=== PATIENT | male | born 1945 | race Caucasian/White ===

== ENCOUNTER → 2020-11-28 | Outpatient (CLI) | payer MEDICARE ==
[2020-11-28 15:32] LABS: HEMOGLOBIN 14.4 gm/dl (14.0-17.5); RED BLOOD COUNT 4.6 M/UL (4.20-5.50); WHITE BLOOD COUNT 6.9 K/UL (4.5-11.0)
[2020-11-28 16:19] LABS: BUN/CREATININE RATIO 18 (0-10)
== END ==
LOC: LAB 12:45
PROVIDERS: Anesthesiology Pain Medicine
DX: Z01.818 Encounter for other preprocedural examination (principal); J43.9 Emphysema, unspecified
CPT/HCPCS: 36415; 71046; 80048; 85027; 93005

== ENCOUNTER → 2021-03-24 | Outpatient (CLI) | payer MEDICARE ==
[~2021-03-24] MED LIST: ASPIRIN325 MG PO; ATENOLOL25 MG PO; CATAPRES 0.1MG0.1 MG PO; FLOMAX 0.4 MG0.4 MG PO; ISOSORBIDE MONO30 MG PO; LIPITOR80 MG PO; LISINOPRIL40 MG PO; MELATONIN5 M2 PO; MIRTAZAPINE15 MG PO; MOBIC15 MG PO; MUCUS RELIEF400 MG PO; NAMENDA5 MG PO; NEURONTIN300 MG PO; NORVASC10 MG PO; PERCOCET 10-321 EACH PO; PLAVIX75 MG PO; PROTONIX40 MG PO; PROVENTIL HFA6.7 GM INH; SYMPROIC PO; TRAZODONE HCL50 MG PO; TRELEGY ELLIPT1 EACH INH; XANAX0.5 MG PO; ZANAFLEX4 MG PO
[2021-03-24 10:54] LABS: HEMOGLOBIN 13.2 gm/dl (14.0-17.5); RED BLOOD COUNT 4.21 M/UL (4.20-5.50); WHITE BLOOD COUNT 8.2 K/UL (4.5-11.0)
[2021-03-24 11:39] LABS: BUN/CREATININE RATIO 15 (0-10)
== END ==
LOC: OPSV2 09:37
PROVIDERS: Anesthesiology Pain Medicine
DX: Z01.818 Encounter for other preprocedural examination (principal); M43.26 Fusion of spine, lumbar region; G89.29 Other chronic pain; T85.118A Breakdown (mechanical) of other implanted electronic stimulator of nervous system, initial encounter; R91.8 Other nonspecific abnormal finding of lung field
CPT/HCPCS: 36415; 71046; 80048; 81001; 85025; 87086; 93005

== ENCOUNTER → 2021-08-11 | Outpatient (CLI) | payer MEDICARE | LOC: HEART 5 08:43 | DX: J44.9 Chronic obstructive pulmonary disease, unspecified (principal) | CPT/HCPCS: 94060; 94729 ==

== ENCOUNTER 2021-09-08 10:46 | Emergency (ER) | payer MEDICARE ==
[2021-09-08 15:07] LABS: BUN/CREATININE RATIO 22 (0-10)
[2021-09-08 15:09] LABS: HEMOGLOBIN 12.4 gm/dl (14.0-17.5); RED BLOOD COUNT 3.77 M/UL (4.20-5.50); WHITE BLOOD COUNT 8.9 K/UL (4.5-11.0)
== END 2021-09-08 16:57 | disposition home or self-care (01) ==
LOC: ER1 10:46
PROVIDERS: Physician Assistant
DX: M79.89 Other specified soft tissue disorders (principal); R41.3 Other amnesia; J42 Unspecified chronic bronchitis; E78.5 Hyperlipidemia, unspecified; I48.91 Unspecified atrial fibrillation; I10 Essential (primary) hypertension; F17.210 Nicotine dependence, cigarettes, uncomplicated; Z86.73 Personal history of transient ischemic attack (TIA), and cerebral infarction without residual deficits
CPT/HCPCS: 71045; 73562; 73590; 73610; 80053; 81001; 85025; 87086; 93971; 99284